=== PATIENT | female | born 1945 | race American Indian/Alaskan Native ===

== ENCOUNTER 2016-11-11 08:11 | Outpatient (CLI) | payer MEDICARE ==
[2016-11-11 08:55] LABS: Basophils % (Auto) 0.7 % (0.0-1.8); Eosinophils % (Auto) 3.5 % (0.0-4.3); Hematocrit 37.6 % (30.3-42.9); Hemoglobin 12.6 gm/dl (10.1-14.3); Mean Corpuscular HGB Conc 33 % (30-34); Mean Corpuscular Hemoglobin 33 pg (28-32); Mean Corpuscular Volume 100 fl (79-97); Platelet Count 130 K/mm3 (140-440); Red Blood Count 3.77 M/mm3 (3.65-5.03); Red Cell Distribution Width 13.1 % (13.2-15.2); White Blood Count 5.7 K/mm3 (4.5-11.0)
[2016-11-11 09:18] LABS: Albumin 4.1 g/dL (3.9-5); Anion Gap 22 mmol/L; Blood Urea Nitrogen 12 mg/dL (7-17); Calcium 9.7 mg/dL (8.4-10.2); Carbon Dioxide 20 mmol/L (22-30); Chloride 98.3 mmol/L (98-107); Glucose 109 mg/dL (65-100); Potassium 3.8 mmol/L (3.6-5.0); Sodium 136 mmol/L (137-145); Uric Acid 5.4 mg/dL (3.5-7.6)
--- NOTE | 2016-11-11 13:52 | Ultrasound Report ---
ULTRASOUND RENAL BILATERAL INDICATION: Abnormal results of kidney function studies. COMPARISON: None similar. FINDINGS: Renal sonography somewhat technically limited and suggests top normal renal cortical echogenicity. Grossly preserved contours. No hydronephrosis. Gallstones incidentally noted. Right kidney slightly obscured due to bowel gas, though estimated at 8.1 x 5 x 4.3 cm with cortical thickness of 1.1 cm. Left kidney is 7.9 x 5 x 4.3 cm with cortical thickness of 1.5 cm. CONCLUSION: 1. No acute renal abnormality, though mild bilateral renal atrophy and subtle underlying medical renal disease questioned sonographically, as described. Please correlate. 2. Cholelithiasis. Thank you for the opportunity to participate in this patient's care.
--- NOTE | 2016-11-11 13:54 | Ultrasound Report ---
ULTRASOUND BLADDER RESIDUAL: INDICATION: Abnormal results of kidney function studies. COMPARISON: None similar at this institution. FINDINGS: Sonographic estimation of pre- and postvoid urinary bladder volume performed. Prevoid urinary bladder volume is 102 cubic centimeters. Postvoid urinary bladder volume is 91 cubic centimeters. CONCLUSION: Moderate to large postvoid residual noted, as described. Patient unable to fully empty urinary bladder. Please correlate. Thank you for the opportunity to participate in this patient's care.
== END 2016-11-11 08:12 | disposition home or self-care (01) ==
LOC: US 08:11
PROVIDERS: ATTEND Internal Medicine Nephrology
DX: I10 Essential (primary) hypertension (principal); E08.29 Diabetes mellitus due to underlying condition with other diabetic kidney complication; D64.9 Anemia, unspecified; E87.5 Hyperkalemia; R94.4 Abnormal results of kidney function studies; R60.9 Edema, unspecified; K80.20 Calculus of gallbladder without cholecystitis without obstruction; N26.1 Atrophy of kidney (terminal)
CPT/HCPCS: 36415; 76770; 76857; 80048; 80074; 82040; 84100; 84550; 85025; 86334; 89050